=== PATIENT | female | born 1955 | race Caucasian/White ===

== ENCOUNTER 2016-08-28 15:16 | Inpatient (IN) | payer OTHER ==
--- NOTE | ~2016-08-28 | PN ---
Unit #: [id number] #: [id number] Patient: CARLY WHITTAKER [id number] [facility] [address] [place] [address] [id number] MR#: [id number] NAME: CARLY WHITTAKER. ROOM: P110 Age: 61 Sex: F Admission Date: 08/28/2016 : 1955 Attending Physician: Lv Ace M.D. Admitting Physician: Lv Ace M.D. Primary Care Physician: Generic Doctor Not In System [employer] NOTES DATE OF SERVICE: 08/26/2016 DISCUSSION Ms. Carly Bojorquez is a 61-year-old female, seen on 08/26/2016. The patient diagnosed with amphetamine abuse, cannabis abuse, and depression. The patient reports that she has been feeling sad and depressed. Denied any thoughts of harming self or others, but sad, depressed, anxious, and nervous. REVIEW OF SYSTEMS Complete review of systems unremarkable. MENTAL STATUS EXAMINATION General appearance, the patient morbidly obese, dressed casually. Attention span and concentration, fair. Oriented in time, place, and person. Mood and affect, labile, sad, and dysphoric. Speech, monotone. Thought process, concrete. The patient denied any thoughts of harming self or others, but guarded, paranoid, flat affect, withdrawn. Recent and remote memory, poor. Insight and judgment, poor. DIAGNOSES Amphetamine use disorder, severe, F15.20; major depressive disorder, recurrent, F33.2; cannabis abuse disorder, moderate, F12.20. ASSESSMENT/PLAN 1. Supportive psychotherapy and psychoeducation provided to the patient. 2. Educated about benefits and side effects of medication and course and prognosis of illness. 3. Advised to continue with current medication with a plan to consider inpatient if needed for psychiatric stabilization. Dictated by... Toi Islas/ana TD: 08/30/2016 12:06 JOB #: [id number] Unit #: [id number] #: [id number] Patient: CARLY WHITTAKER [facility] PROGRESS NOTES Page 1 of 1 X Lv Ace MD NOTE
--- NOTE | ~2016-08-28 | HP ---
Unit #: [id number] #: [id number] Patient: CARLY WHITTAKER [id number] [place] [address] [id number] MR#: [id number] NAME: CARLY WHITTAKER. ROOM: [facility] Age: 61 Sex: F Admission Date: 08/28/2016 : 1955 Attending Physician: Lv Ace M.D. Admitting Physician: Lv Ace M.D. Primary Care Physician: Generic Doctor Not In System HISTORY AND PHYSICAL HISTORY OF PRESENT ILLNESS Carly is a 61-year-old female admitted on 08/28/[address] [place] [address] for visual and auditory hallucinations. She also reports that she has recently starting using methamphetamine. PAST MEDICAL HISTORY 1. Obesity. 2. Fibromyalgia. 3. CHF. 4. COPD. 5. Hypertension. 6. Pre-diabetes. 7. Hyperlipidemia. 8. Bipolar disorder. 9. PTSD. PAST SURGICAL HISTORY 1. Hysterectomy. 2. Cholecystectomy. 3. Tonsillectomy. ALLERGIES Aspirin. SOCIAL HISTORY Smokes 1 pack of cigarettes. No alcohol use. Does report frequent use of meth and marijuana. She also is and living alone. FAMILY HISTORY Noncontributory. REVIEW OF SYSTEMS CONSTITUTIONAL: No fever or chills. HEENT: Denies any sore throat, ear pain or runny nose. CARDIOVASCULAR: Denies chest pain, irregular heart rhythm or palpitations. CHEST: Denies shortness of breath or cough. No hemoptysis. GASTROINTESTINAL: Denies nausea, vomiting, diarrhea or chronic constipation. ENDOCRINE: Denies history of increased thirst or urination. No recent significant weight loss or gain. GENITOURINARY: Denies dysuria, frequency, or hematuria. SKIN: Denies any rashes. HEMATOLOGIC: Denies history of increased bleeding or bruising. Unit #: [id number] #: [id number] Patient: CARLY WHITTAKER MUSCULOSKELETAL: Denies any hot, swollen joints. No generalized muscle pain. NEUROLOGIC: Denies problems with vision or speech. No frequent, severe headaches. No numbness, tingling or weakness in any extremities. Denies loss of bladder or bowel control. CURRENT MEDICATIONS 1. Dillon-3. 2. Gabapentin. 3. Topamax. 4. Acetazolamide. 5. Rabeprazole. 6. Trospium chloride. 7. Prazosin. 8. Sucralfate. 9. Flonase. 10. Carvedilol. 11. Colace. 12. Claritin. 13. Atorvastatin. 14. Doxepin. 15. Potassium. 16. Ranitidine. 17. Furosemide. 18. Advair. 19. Spiriva. PHYSICAL EXAMINATION GENERAL: Alert, oriented, in no acute distress. VITAL SIGNS: Blood pressure 146/81, heart rate 60, respirations 18, temperature 97.5. HEIGHT: 5 feet 3. WEIGHT: 237 pounds. SKIN: Warm and dry without rash or lesion. HEENT: Normocephalic. TMs not viewed. Oral and nasal passages clear. Conjunctivae clear. PERRLA. EOMs intact. NECK: Supple without lymphadenopathy or thyromegaly. HEART: Regular rate and rhythm without murmur. LUNGS: Clear. ABDOMEN: Soft, nontender, without masses or hepatosplenomegaly. : Not done. EXTREMITIES: No evidence of cyanosis, clubbing or edema. Moves all without focal deficit. NEUROLOGICAL: Grossly within normal limits. Cranial Nerves: II: Visual sousa are intact. III, IV AND : Extraocular movements are intact. Pupils are equal, round and reactive to light. V: Facial sensation is grossly normal. VII: Facial movements and expression are normal. VIII: Auditory acuity grossly intact. IX, X: Uvula is midline. Phonation is normal. XI: Patient shrugs shoulders and turns head normally. XII: Tongue protrudes in the midline. Sensory and Motor Function: Sensory and motor sensation is grossly normal. Motor: moves all extremities well. Coordination: Gait is normal. Deep Tendon Reflexes: Intact. IMPRESSION 1. Psychiatric admission. 2. Obesity. Unit #: [id number] #: [id number] Patient: CARLY WHITTAKER 3. Fibromyalgia. 4. CHF. 5. Bipolar disorder. 6. Chronic obstructive pulmonary disease. 7. Posttraumatic stress disorder. 8. Hypertension. 9. Pre-diabetes. 10. Hyperlipidemia. RECOMMENDATIONS PSYCHIATRIC: Per psychiatrist. MEDICAL: No contraindications to participate in facility's activities. MEDICAL PROGNOSIS Good. MEDICAL CONDITION Stable. Dictated by... Sushma Child.R.N. MJW/cyndy TD: 08/29/2016 18:51 JOB #: [id number] HISTORY AND PHYSICAL Page 1 of 1 X GARFIELD BAILEY APRN X HISTORY AND PHYSICAL
--- NOTE | ~2016-08-28 | PN ---
Unit #: [id number] #: [id number] Patient: SHAHNAZ WHITTAKER [id number] [facility] [address] [place] [address] [id number] I MR#: [id number] NAME: SHAHNAZ WHITTAKER. ROOM: P110 Age: 61 Sex: F Admission Date: 08/28/2016 : 1955 Attending Physician: Lv Ace M.D. Admitting Physician: Lv Ace M.D. Primary Care Physician: Generic Doctor Not In System [employer] PROGRESS NOTES DATE OF SERVICE: 08/30/2016 DISCUSSION Ms. Carroll is a 61-year-old female, seen on 08/30/2016. The patient interviewed, chart reviewed, and obtained information from nursing staff. The patient is currently on doxepin, currently off from all other medication. The patient's urine drug screen was negative upon admission. The patient is anxious, nervous, sad, depressed, and withdrawn. REVIEW OF SYSTEMS A complete review of systems is unremarkable. MENTAL STATUS EXAMINATION General appearance; the patient dressed casually. Attention span and concentration, fair. Vital signs; temperature 98.2, pulse 54, respirations 16, and blood pressure 145/75. Oriented in time, place, and person. Mood and affect, labile. Speech, monotone. Thought process, concrete. The patient denied any thoughts of harming self or others, but sad, depressed, withdrawn, and isolative. Recent and remote memory, poor. Insight and judgment, poor. DIAGNOSES Bipolar mood disorder, not otherwise specified; amphetamine use disorder, moderate; cannabis abuse, moderate. ASSESSMENT AND PLAN Advised to continue with current medication and therapeutic protocol. If needed, consider further adjustment of medication. Dictated by... Toi Islas/ana TD: 08/30/2016 13:44 JOB #: [id number] Unit #: [id number] #: [id number] Patient: SHAHNAZ WHITTAKER [facility] PROGRESS NOTES Page 1 of 1 X Lv Ace MD X PROGRESS NOTE
--- NOTE | ~2016-08-28 | PA ---
Unit #: [id number] #: [id number] Patient: CARLY WHITTAKER [id number] [place] [address] [id number] I MR#: [id number] NAME: CARLY WHITTAKER. ROOM: P110 Age: 61 Sex: F Admission Date: 08/28/2016 : 1955 Date of Assessment: 08/29/2016 Attending Physician: Lv Ace M.D. Admitting Physician: Lv Ace M.D. Primary Care Physician: Generic Doctor Not In System PSYCHIATRIC ASSESSMENT REASON FOR ADMISSION Depression, anxiety, decompensation of her mood symptoms, and paranoia. HISTORY OF PRESENT ILLNESS Ms. Carly Whittaker is a 61-year-old female, who was admitted from [facility] level of care to inpatient because of worsening of her symptoms. The patient reported increase in auditory and visual hallucination despite of increase in medication. The patient reported poor sleep, difficulty focusing, feeling sad and depressed, feeling of hopelessness, passive SI, multiple medication adjustments. The patient reported increase in muscle jerking affecting her activity of daily living including driving and eating after causing the patient to drop drinks, utensils, affecting sleep. The patient reported increase in depression related to no improvement in symptoms despite multiple changes in medication. The patient recommended inpatient admission at this time for psychiatric stabilization. The patient has completed eighth grade of education, reported good support system, but no use of any drugs recently, but has a history in the past. PAST PSYCHIATRIC HISTORY Remarkable for history of outpatient treatment through [facility] in the past. FAMILY HISTORY AND SOCIAL HISTORY The patient lives by herself, but has a good support system. Family psychiatric illness is unknown at this time. No history of abuse. No history of any legal problems. MEDICAL HISTORY Remarkable for history of arthritis, hiatal hernia, obesity, CHF, kidney stone, fibromyalgia. Musculoskeletal; muscle strength and tone, no atrophy or abnormal movement. Gait normal. MEDICATION HISTORY The patient is on duloxetine 90 mg daily, benztropine 0.5 mg t.i.d., and Geodon 120 mg daily. The patient is also on medications such as Spiriva, Pepcid, Lipitor, Coreg, Carafate, Symbicort, Minipress, sucralfate, fish oil, acetazolamide, Pepcid, Flonase nasal spray, Klor-Con, furosemide, Claritin, Colace, Protonix. ALLERGIES No known drug allergies. Unit #: [id number] #: [id number] Patient: CARLY WHITTAKER SUBSTANCE ABUSE HISTORY The patient reported tobacco use, age of onset 20; marijuana, age of onset 20; amphetamine, age of onset 60; synthetic drug, age of onset 60. Longest period of sobriety 3 days. Last period of sobriety 3 days. The patient denied any history of blackout, HIV, hepatitis, or withdrawal symptom, or any IV drug use. REVIEW OF SYSTEMS HEENT: Eyes, clear. Ears, nose, mouth, and throat; clear. CARDIOVASCULAR: Unremarkable. RESPIRATORY: Unremarkable. GI: Unremarkable. : Unremarkable. SKIN: Unremarkable. LYMPH NODE: Unremarkable. NEUROLOGIC: Unremarkable. ENDOCRINE: Unremarkable. HEMATOLOGIC: Unremarkable. ALLERGIC/IMMUNOLOGIC: Unremarkable. MUSCULOSKELETAL: Muscle strength and tone, no atrophy or abnormal movement. Gait normal except as mentioned above. MENTAL STATUS EXAMINATION CONSTITUTIONAL: Measurement of vital signs; temperature 99.1, pulse 71, respirations 20, blood pressure 143/91, height 5 feet 3 inches, weight 237 pounds. GENERAL APPEARANCE: The patient moderately obese, dressed casually. The patient did not show any facial deformity. MUSCULOSKELETAL: Please see above. PSYCHIATRIC EXAMINATION Description of speech; regular rate, normal volume, normal articulation, coherent. Description of thought process, goal directed. Description of association, intact. Description of abnormal psychotic thinking; the patient reported auditory and visual hallucination, mood lability, anxious, nervous, passive SI. Denied any homicidal ideation. Description of the patient's judgment, concerning everyday activity, poor. Social situation, poor. Concerning psychiatric condition, poor. Complete mental status examination; oriented in time, place, and person. Recent and remote memory, fair. Language, fair. Fund of knowledge, fair. Vocabulary, fair. Mood and affect, sad and dysphoric. Insight and judgment, fair to poor. ASSETS AND LIABILITIES Assets; the patient is articulate and able to take care of her ADL. Liability, history of depression and substance abuse. ADMITTING DIAGNOSES Psychiatric: Bipolar mood disorder, recurrent, moderate, depressed, F31.9; amphetamine use disorder, moderate, F15.20; cannabis abuse, moderate, F12.20. Secondary diagnosis: Deferred. Medical diagnosis: Arthritis, hiatal hernia, congestive heart failure, kidney disease, fibromyalgia. Unit #: [id number] #: [id number] Patient: CARLY WHITTAKER Stressors: Psychosocial stressors. PSYCHIATRIC PLAN 1. Advised to admit the patient on the inpatient unit. Provide safe, supportive, and structured environment. 2. Ordered labs; CBC, CMP, UA, and UDS. 3. Precaution for self-harm and special observation for psychosis. 4. Advised to stop all psychotropic medications except for doxepin. The patient to attend all the programing on the inpatient unit with group therapy, individual therapy, chemical dependency group. If needed, we will make further adjustment of medication. TREATMENT GOAL To attain euthymic mood, gain insight into her problem, and learn coping skills. DISCHARGE PLAN Plan to stabilize the patient and consider followup in outpatient program. ESTIMATED LENGTH OF STAY 5 days. Dictated by... Lv Ace M.D. KARIS/ana TD: 08/30/2016 03:08 JOB #: [id number] PSYCHIATRIC ASSESSMENT Page 1 of 1 X Lv Ace MD X PSYCHIATRIC ASSESSMENT
--- NOTE | ~2016-08-28 | DS ---
Unit #: [id number] #: [id number] Patient: SHAHNAZ WHITTAKER [id number] [facility] [address] [place] [address] [id number] I MR#: [id number] NAME: SHAHNAZ WHITTAKER. ROOM: P110 Age: 61 Sex: F Admission Date: 08/28/2016 : 1955 Discharge Date: 08/31/2016 Attending Physician: Lv Ace M.D. Primary Care Physician: Generic Doctor Not In System DISCHARGE SUMMARY REASON FOR ADMISSION Depression, anxiety, psychosis. DIAGNOSTIC STUDIES LABORATORY RESULTS: Unremarkable. HOSPITAL COURSE The patient was admitted to inpatient unit on 08/29/2016 and discharged on 08/31/2016. The patient was treated on the inpatient unit with expressive therapy, psychotherapy, structured milieu. The patient was taken off from most of her psychotropic medications except doxepin. The patient showed improvement. Subsequently, the patient was discharged with a plan to follow up in outpatient program. DISCHARGE MEDICATIONS Doxepin 50 mg at bedtime for sleep, fish oil supplement, Diamox supplement, Protonix for GERD, Minipress, Carafate, Flonase, Coreg, Colace, Claritin. DISCHARGE DIAGNOSES Psychiatric: Bipolar mood disorder, not otherwise specified, recurrent, depressed, F31.9; amphetamine use disorder, moderate, F15.20; cannabis abuse, moderate, F12.20. Secondary diagnosis: Deferred. Medical diagnosis: Arthritis, hiatal hernia, congestive heart failure, kidney disease, fibromyalgia. Stressors: Psychosocial stressors. DISCHARGE INSTRUCTIONS The patient to follow up in outpatient clinic as per psych social worker. CONDITION ON DISCHARGE The patient was pleasant and cooperative. Denied any psychotic symptom or any suicidal ideation. PROGNOSIS Guarded. DIET AND ACTIVITY As tolerated. Unit #: [id number] #: [id number] Patient: SHAHNAZ WHITTAKER Dictated by... Toi Islas/ana TD: 09/01/2016 07:39 JOB #: [id number] DISCHARGE SUMMARY Page 1 of 1 X Lv Ace MD X DISCHARGE SUMMARY
--- NOTE | ~2016-08-28 | PN ---
Unit #: [id number] #: [id number] Patient: SHAHNAZ WHITTAKER [id number] [facility] [address] [place] [address] [id number] I MR#: [id number] NAME: SHAHNAZ WHITTAKER. ROOM: P110 Age: 61 Sex: F Admission Date: 08/28/2016 : 1955 Attending Physician: Lv Ace M.D. Admitting Physician: Lv Ace M.D. Primary Care Physician: Generic Doctor Not In System [facility] PROGRESS NOTES DATE 08/28/2016 DISCUSSION Ms. Carroll is a 61-year-old female seen on 08/28/2016. The patient interviewed, chart reviewed, obtain information from nursing staff. The patient has a history of amphetamine abuse, depression, anxiety but reports currently not feeling well. The patient reports feeling of hopelessness, worthlessness, sad, depressed, anxious, currently medications are not working. Complete review of systems unremarkable. MENTAL STATUS EXAMINATION General appearance, the patient dressed casually. Attention span and concentration poor. Oriented to place and person. Mood and affect sad depressed. Speech monotone. Thought process concrete. The patient having passive SI withdrawal, isolative, guarded. Recent and remote memory poor. Insight and judgement poor. DIAGNOSES 1. Amphetamine use disorder severe F15.20. 2. Major depressive disorder recurrent F33.2. ASSESSMENT/PLAN Recommending at this time to assess the patient for inpatient treatment for further stabilization and to straighten her medication regimen. Please feel free to call if any question. The patient was sent to the [facility] for inpatient treatment. Dictated by... Toi Islas/gaudencio TD: 09/02/2016 00:10 JOB #: [id number] Unit #: [id number] #: [id number] Patient: SHAHNAZ WHITTAKER [facility] PROGRESS NOTES Page 1 of 1 X Lv Ace MD PROGRESS NOTE
[2016-08-29 11:38] LABS: BASOPHIL% 0.6 % (0-2.5); EOSINOPHIL# 0.2 X10e3 (0-0.7); HEMATOCRIT 41.9 % (35.0-45.0); HEMOGLOBIN 13.7 gm/dL (12.0-16.0); LYMPHOCYTE# 1.6 X10e3 (1.0-3.5); LYMPHOCYTE% 30.1 % (17.0-45.0); MEAN CELL VOLUME 89.2 FL (83-96); MEAN CORPUSCULAR HEMOGLOBIN 29.2 PG (28-34); MEAN CORPUSCULAR HGB CONC 32.7 g/dL (30-36); MEAN PLATELET VOLUME 10.3 FL (6.5-11.5); MONOCYTE# 0.4 X10e3 (0-1.0); MONOCYTE% 8.1 % (3.0-12.0); NEUTROPHIL# 3.1 X10e3 (1.5-7.1); NEUTROPHIL% 57.2 % (40-75); PLATELET COUNT 158 X10e3 (140-420); RED CELL DISTRIBUTION WIDTH 13.5 % (11.0-15.5); WHITE BLOOD COUNT 5.5 X10e3 (4.0-10.5)
[2016-08-29 11:44] LABS: DIFF IND NO
[2016-08-29 12:22] LABS: THYROID STIMULATING HORMONE 0.5 uIU/ml (0.34-5.60)
[2016-08-29 12:26] LABS: ALBUMIN SERUM 3.6 g/dL (3.5-5.0); BILIRUBIN,TOTAL 0.5 mg/dL (0.2-2.0); BUN/CREATININE RATIO 15.45; CALCIUM SERUM 8.9 mg/dL (8.4-10.2); CREATININE SERUM 1.1 mg/dL (0.6-1.4); GLOM FILT RATE Estimated 54.2 mL/min (>60); POTASSIUM 4.1 mmol/L (3.5-5.1); PROTEIN TOTAL SERUM 6.4 g/dL (6.0-8.3)
[2016-08-29 12:29] LABS: FREE THYROXIN (T4) 0.67 ng/dL (0.58-1.64)
== END 2016-08-31 13:00 | disposition home or self-care (01) | DRG 885 ==
LOC: P1S 15:16 → POF 08-29 18:20 → P1S 08-29 18:21 → POF 08-29 23:56 → P1S 08-29 23:58
PROVIDERS: Psychiatry & Neurology Psychiatry
DX: F31.32 Bipolar disorder, current episode depressed, moderate (principal); F15.20 Other stimulant dependence, uncomplicated; I50.9 Heart failure, unspecified; F12.20 Cannabis dependence, uncomplicated; M19.90 Unspecified osteoarthritis, unspecified site; K44.9 Diaphragmatic hernia without obstruction or gangrene; M79.7 Fibromyalgia; E11.9 Type 2 diabetes mellitus without complications; F43.10 Post-traumatic stress disorder, unspecified; I10 Essential (primary) hypertension; E78.5 Hyperlipidemia, unspecified; Z88.6 Allergy status to analgesic agent; Z90.710 Acquired absence of both cervix and uterus; F17.210 Nicotine dependence, cigarettes, uncomplicated
CPT/HCPCS: 80053; 84439; 84443; 85025; J1650